=== PATIENT | male | born 1990 | race Two or more races ===

== ENCOUNTER 2016-11-21 14:58 | Emergency (ER) | payer OTHER ==
[~2016-11-21] VITALS: Ht 177.8 cm; Wt 104.3 kg
--- NOTE | 2016-11-21 15:10 | NUR ---
BIB self to ED reported seizure happen last night. no current seizure, alert oriented. no acute distress, no chest pain. skin warm to touch, non diaphoretic. vss. neuro intact.
[2016-11-21] MEDS ORDERED: IV NS 0.9% 1,000 ML ONE (15:20)
[2016-11-21] MEDS ORDERED: IV SET PRIMARY PUMP SET 1 EA INFUS.SET MC ONE (15:20)
[2016-11-21] MEDS ORDERED: IV NS 0.9% 1,000 ML BAG IV ONE (15:30)
--- NOTE | 2016-11-21 15:30 | NUR ---
started saline lock on right ac 20. blood sample sent to lab.
[2016-11-21 15:31] LABS: BASOPHILS % (AUTO) 0.5 % (0.0-2.0); EOSINOPHILS # (AUTO) 0.2 /CMM (0.0-0.7); EOSINOPHILS % (AUTO) 3.3 % (0.0-6.0); HEMATOCRIT 46 % (39-51); HEMOGLOBIN 15.9 g/dL (13.5-17.5); LYMPHOCYTES # (AUTO) 2.4 /CMM (0.8-4.8); LYMPHOCYTES % (AUTO) 36.9 % (20.0-44.0); MEAN CORPUSCULAR HEMOGLOBIN 29 PG (26.0-33.0); MEAN CORPUSCULAR HGB CONC 34 g/dl (31.0-36.0); MEAN CORPUSCULAR VOLUME 83 fL (80-96); NEUTROPHILS # (AUTO) 2.8 /CMM (1.8-8.9); NEUTROPHILS % (AUTO) 44.3 % (43.0-81.0); PLATELET COUNT (AUTO) 221 /CMM (150-450); RDW COEFFICIENT OF VARIATION 12.3 (11.5-15.0); RED BLOOD CELL COUNT(AUTO) 5.54 MIL/uL (4.5-6.0); WHITE BLOOD COUNT (AUTO) 6.4 K/uL (4.3-11.0)
[2016-11-21 15:40] LABS: CALCIUM, SERUM 8.8 mg/dL (8.5-10.1)
[2016-11-21 15:46] LABS: ALBUMIN 4.1 g/dL (3.4-5.0); BILIRUBIN,DIRECT 0.2 mg/dL (0.0-0.2); BILIRUBIN,TOTAL 1.1 mg/dL (0.2-1.0); TOTAL PROTEIN, SERUM 7.7 g/dL (6.4-8.2)
[2016-11-21 16:10] VITALS: BP 139/75
--- NOTE | 2016-11-21 16:10 | NUR ---
Patient discharged to home in stable condition. Written and verbal after care instructions given. Patient verbalizes understanding of instruction.
--- NOTE | 2016-11-21 16:10 | NUR ---
IV removed. Catheter intact and site benign. Pressure and 4x4 applied to site. No bleeding noted.
[2016-11-21 18:21] LABS: BAND % (MANUAL) 1 % (0.0-5.0); EOSINOPHILS % (MANUAL) 2 % (0-4); LYMPHOCYTES % (MANUAL) 37 % (16-48); MONOCYTES % (MANUAL) 10 % (0-11.0); NEUTROPHILS % (MANUAL) 50 (42-76)
[2016-11-21 18:22] LABS: PLATELET ESTIMATE ADEQUATE
== END 2016-11-21 16:11 | disposition home or self-care (01) ==
LOC: ER 15:01
DX: R55 Syncope and collapse (principal); F17.210 Nicotine dependence, cigarettes, uncomplicated; E78.00 Pure hypercholesterolemia, unspecified
CPT/HCPCS: 36415; 70450; 80048; 80076; 85025; 93005; 96360; 99285; A4606; J7030; Z7610